=== PATIENT | female | born 1975 | race Caucasian/White ===

== ENCOUNTER 2020-12-28 12:53 | Outpatient (REF) | payer BC, SELFPAY ==
[2020-12-28 21:24] LABS: ALT 44 U/L (14-59); AST 21 U/L (15-37); Albumin 4.2 g/dL (3.4-5.0); Alkaline Phosphatase 47 U/L (46-116); Anion Gap 9.7 mmol/L (3-11); BUN 17 mg/dL (7-18); Bilirubin, Total 1.1 mg/dL (0.2-1.0); CO2 29.3 mmol/L (21.0-32.0); Calcium 9.2 mg/dL (8.5-10.1); Calculated LDL 169 mg/dL (<100); Chloride 103 mmol/L (98-107); Cholesterol 240 mg/dL (<200); Glucose 94 mg/dL (74-106); HDL Cholesterol 55 mg/dL (40-60); Potassium 4.1 mmol/L (3.5-5.1); Sodium 142 mmol/L (136-145); Total Protein 6.9 g/dL (6.4-8.2); Triglyceride 80 mg/dL (<150)
== END 2020-12-28 12:54 | disposition home or self-care (01) ==
LOC: NCHCN 12:53
PROVIDERS: Visit Provider Nurse Practitioner Family
DX: Z00.00 Encounter for general adult medical examination without abnormal findings (principal); Z13.220 Encounter for screening for lipoid disorders; Z13.228 Encounter for screening for other metabolic disorders
CPT/HCPCS: 80053; 80061

== ENCOUNTER 2022-07-08 12:56 | Outpatient (REF) | payer BC, SELFPAY ==
[2022-07-08 15:16] LABS: Hemoglobin A1C 5.7 % (<5.7)
[2022-07-08 15:18] LABS: ALT 40 U/L (14-59); AST 26 U/L (15-37); Albumin 4.2 g/dL (3.4-5.0); Alkaline Phosphatase 41 U/L (46-116); Anion Gap 6.4 mmol/L (3-11); BUN 20 mg/dL (7-18); Bilirubin, Total 1.1 mg/dL (0.2-1.0); CO2 29.6 mmol/L (21.0-32.0); CREATININE 1.1 mg/dL (0.55-1.02); Calcium 9.2 mg/dL (8.5-10.1); Calculated LDL 160 mg/dL (<100); Chloride 103 mmol/L (98-107); Cholesterol 226 mg/dL (<200); Estimated GFR 63.54 (mL/min/1.73m2); Glucose 105 mg/dL (74-106); HDL Cholesterol 52 mg/dL (40-60); Potassium 3.9 mmol/L (3.5-5.1); Sodium 139 mmol/L (136-145); Total Protein 7.3 g/dL (6.4-8.2); Triglyceride 71 mg/dL (<150)
== END 2022-07-08 12:57 | disposition home or self-care (01) ==
LOC: NCHCN 12:56
PROVIDERS: Visit Provider Nurse Practitioner Family
DX: Z00.00 Encounter for general adult medical examination without abnormal findings (principal); E66.3 Overweight; R03.0 Elevated blood-pressure reading, without diagnosis of hypertension
CPT/HCPCS: 80053; 80061; 83036

== ENCOUNTER 2023-06-30 19:08 | Outpatient (REF) | payer BC, SELFPAY ==
[2023-06-30 15:18] LABS: Hemoglobin A1C 5.6 % (<5.7)
[2023-06-30 15:31] LABS: ALT 51 U/L (14-59); AST 30 U/L (15-37); Albumin 4.8 g/dL (3.4-5.0); Alkaline Phosphatase 49 U/L (46-116); Anion Gap 10.2 mmol/L (3-11); BUN 21 mg/dL (7-18); Bilirubin, Total 0.9 mg/dL (0.2-1.0); CO2 28.8 mmol/L (21.0-32.0); CREATININE 1.1 mg/dL (0.55-1.02); Calcium 10.3 mg/dL (8.5-10.1); Calculated LDL 208 mg/dL (<100); Chloride 100 mmol/L (98-107); Cholesterol 293 mg/dL (<200); Estimated GFR 63.15 (mL/min/1.73m2); Glucose 112 mg/dL (74-106); HDL Cholesterol 62 mg/dL (40-60); Potassium 4.4 mmol/L (3.5-5.1); Sodium 139 mmol/L (136-145); Total Protein 8.2 g/dL (6.4-8.2); Triglyceride 119 mg/dL (<150)
== END 2023-06-30 19:09 | disposition home or self-care (01) ==
LOC: NCHCN 19:08
PROVIDERS: Visit Provider Family Medicine
DX: E78.5 Hyperlipidemia, unspecified (principal); R73.03 Prediabetes; E66.3 Overweight
CPT/HCPCS: 80053; 80061; 83036

== ENCOUNTER 2024-07-08 14:04 | Outpatient (REF) | payer BC, SELFPAY ==
--- OUTSIDE RECORDS SUMMARY | 2024-07-08 14:10 | XMS_ITS ---
Author Organization Unknown Address [address] [place] [address] [phone] Phone Care Team Providers Care Refractory Grinder Operator Name Role Phone DANA Sawyer Attending Unavaila ble Social History Type Status Start Date End Date Code Code Syst em Smoking History Unknown if ever smoked [id number] Sex Male Hospital Discharge Instructions Should you have any questions prior to discharge, please contact a member of your healthcare team. If you have left the hospital and have any questions, please contact your primary care physician. Reason For Referral No Data Found Procedures Procedure Name Date Status Code Code Syste m Colonoscopy, Flexible, Proxi mal To Splenic Flexure; w/Bx, Single/Multiple 06/02/2023 completed 80594 C PT Plan of Treatment No Data Found Encounters Encounter Diagnosis Start Date Code Code Sys tem Encounter for screening for malignant neoplasm of colo n 06/02/2023 SNOMED-CT Personal Care Team Section Performer Name Performer Role Active Date Inactive Da benedict
--- OUTSIDE RECORDS SUMMARY | 2024-07-08 14:10 | XMS_ITS ---
Author Organization Unknown Address [address] [place] [address] [phone] Phone Care Team Providers Care Clothes Drier Repairer Name Role Phone DANA Sawyer Attending Unavaila ble Social History Type Status Start Date End Date Code Code Syst em Smoking History Unknown if ever smoked [id number] Sex Male Hospital Discharge Instructions Should you have any questions prior to discharge, please contact a member of your healthcare team. If you have left the hospital and have any questions, please contact your primary care physician. Reason For Referral No Data Found Plan of Treatment No Data Found Encounters Encounter Diagnosis Start Date Code Code Sys tem Encounter for screening for malignant neoplasm of colo n 06/02/2023 SNOMED-CT Personal Care Team Section Performer Name Performer Role Active Date Inactive Da te
[2024-07-08 15:54] LABS: ALT 47 U/L (14-59); AST 31 U/L (15-37); Albumin 4.1 g/dL (3.4-5.0); Alkaline Phosphatase 49 U/L (46-116); Anion Gap 6.7 mmol/L (3-11); BUN 14 mg/dL (7-18); Bilirubin, Total 1.17 mg/dL (0.2-1.0); CO2 27.3 mmol/L (21.0-32.0); CREATININE 1.1 mg/dL (0.55-1.02); Calcium 9.2 mg/dL (8.5-10.1); Calculated LDL 156 mg/dL (<100); Chloride 105 mmol/L (98-107); Cholesterol 231 mg/dL (<200); Estimated GFR 62.76 (mL/min/1.73m2); Glucose 103 mg/dL (74-106); HDL Cholesterol 57 mg/dL (40-60); Potassium 4.2 mmol/L (3.5-5.1); Sodium 139 mmol/L (136-145); Total Protein 7.1 g/dL (6.4-8.2); Triglyceride 91 mg/dL (<150)
[2024-07-08 16:30] LABS: Hemoglobin A1C 5.6 % (<5.7)
== END 2024-07-08 14:05 | disposition home or self-care (01) ==
LOC: NCHCN 14:04
PROVIDERS: Visit Provider Family Medicine
DX: R73.03 Prediabetes (principal); E78.5 Hyperlipidemia, unspecified
CPT/HCPCS: 80053; 80061; 83036; 84443